=== PATIENT | female | born 1995 | race Caucasian/White ===

== ENCOUNTER 2017-08-11 16:54 | Inpatient (IN) | payer BC, OTHER ==
[~2017-08-11] VITALS: Ht 162.6 cm; Wt 66.4 kg
[2017-08-11] MEDS ORDERED: SODIUM CHLORIDE 0.9% 1000ML 1,000 ML IV STA (17:51)
[2017-08-11] MEDS ORDERED: ONDANSETRON INJ 2 MG/ML 2 ML VIAL IV STA (17:51)
[2017-08-11] MEDS ORDERED: FAMOTIDINE IV INJ 20 MG in DEXTROSE 5% 100ML 100 ML IV STA (17:51)
[2017-08-11] MEDS ORDERED: PANTOprazole INJ 40 MG in SYRINGE 0 ML IV ONE (18:00)
--- NOTE | 2017-08-11 18:00 | EMERGENCY ROOM VISIT NOTE ---
History Report prepared by Sean: Julian Massey Under the Supervision of: Dr. Robi Tyler D.O. First contact with patient: 17:49 Chief Complaint: VOMITING Stated Complaint: VOMITING BLOOD,ABD PAIN,HEADACHE,LIGHTHEADED,COUGH Nursing Triage Summary: pt had episode of n/v bright red blood today and has epigastric pain and [place] History of Present Illness The patient is a 22 year old female who presents to the Emergency Room with complaints of sudden vomiting occurring prior to arrival. The patient states that the patient was working, and she got the sudden urge to vomit, and she has vomited three times. She states that the first time she vomited she had 8-10oz of bright red blood in her vomit, and then afterwards she was having darker red vomit. The patient additionally notes that she has diffuse abdominal pain, and over the past two days she has intermittent sharp abdominal pain. She additionally states that she has been having chills, feels feverish, and she has a headache. She denies any hematochezia or melena, and she states that she has never had anything like this before. The patient states that she has chronic bronchitis, though she denies any stomach problems. She states that she drinks alcohol on the weekends, and her last period was three weeks ago. She denies nay chance of being . Source of History: patient Onset: prior to arrival Position: other (global) Quality: other (vomiting) Timing: other (sudden) Associated Symptoms: + fevers, + chills, + headache, + abdominal pain, No melena, No hematochezia Review of Systems See HPI for pertinent positives & negatives. A total of 10 systems reviewed and were otherwise negative. Past Medical & Surgical Medical Problems: (1) Hematemesis Social History Smoking Status: Never Smoker Alcohol Use: occasionally Occupation Status: [employer] student Current/Historical Medications Scheduled Control Pills ( Control Pills), 1 TAB PO DAILY Dextromethorphan-Guaifenesin (Delsym Cough + Chest Lazaro 5-100 mg/5Ml), 20 ML PO DAILY Escitalopram Oxalate (Lexapro), 20 MG PO DAILY Phenylephrine-Chlorpheniramine (Karla-[place] Plus Severe), 1 TAB PO BID Scheduled PRN Hydroxyzine Hcl (Atarax), 50 MG PO QID PRN for Anxiety Allergies Coded Allergies: No Known Allergies (Unverified , 08/11/17) Physical Exam Vital Signs Date Time Temp Pulse Resp B/P (MAP) Pulse Ox O2 Delivery O2 Flow Rate FiO2 08/11/17 18:35 79 17 127/76 96 Room Air 08/11/17 16:58 37.0 96 16 135/91 98 Physical Exam GENERAL: Patient is awake, alert, and in no acute distress. Patient is resting comfortably and showing no signs of anxiety EYES: The conjunctivae are clear. The pupils are round and reactive. EARS, NOSE, MOUTH AND THROAT: The nose is without any evidence of any deformity. Mucous membranes are moist tongue is midline NECK: The neck is nontender and supple. RESPIRATORY: Normal respiratory effort is noted there is no evidence of wheezing rhonchi or rales CARDIOVASCULAR: Regular rate and rhythm noted there no murmurs rubs or gallops normal S1 normal S2 GASTROINTESTINAL: The abdomen is soft. Bowel sounds are present in all quadrants. Abdomen is nontender MUSCULOSKELETAL/EXTREMITIES: There is no evidence of gross deformity full range of motion is noted in the hips and shoulders SKIN: There is no obvious evidence of any rash. There are no petechiae, pallor or cyanosis noted. NEUROLOGIC: Patient is awake alert and oriented x3 strength is symmetric patellar reflexes are 2+ bilaterally Medical Decision & Procedures ER Provider Diagnostic Interpretation: Radiology results as stated below per my review and radiologist interpretation: CHEST AND ABDOMEN 2 VIEWS HISTORY: Generalized abdominal pain. Vomiting. COMPARISON: FINDINGS: The lungs are clear. The cardiomediastinal silhouette is within normal limits. There is no pneumoperitoneum or pneumatosis. The bowel gas pattern is unremarkable. No evidence for bowel obstruction. No pathologic calcifications. IMPRESSION: No acute cardiopulmonary process. No evidence for bowel obstruction. Electronically signed by: Maurisio Calles M.D. 08/11/2017 7:52 PM Dictated Date/Time: 08/11/2017 7:49 PM Laboratory Results 08/11/17 18:00 Red Blood Count 4.56, Mean Corpuscular Volume 88.2, Mean Corpuscular Hemoglobin 29.4, Mean Corpuscular Hemoglobin Concent 33.3, Mean Platelet Volume 8.7, Neutrophils (%) (Auto) 85.7, Lymphocytes (%) (Auto) 10.8, Monocytes (%) (Auto) 3.0, Eosinophils (%) (Auto) 0.1, Basophils (%) (Auto) 0.1, Neutrophils # (Auto) 9.22, Lymphocytes # (Auto) 1.16, Monocytes # (Auto) 0.32, Eosinophils # (Auto) 0.01, Basophils # (Auto) 0.01 Test 08/11/17 18:00 White Blood Count 10.75 K/uL (4.8-10.8) Red Blood Count 4.56 M/uL (4.2-5.4) Hemoglobin 13.4 g/dL (12.0-16.0) Hematocrit 40.2 % (37-47) Mean Corpuscular Volume 88.2 fL (80-100) Mean Corpuscular Hemoglobin 29.4 pg (25-34) Mean Corpuscular Hemoglobin Concent 33.3 g/dl (32-36) Platelet Count 279 K/uL (130-400) Mean Platelet Volume 8.7 fL (7.4-10.4) Neutrophils (%) (Auto) 85.7 % Lymphocytes (%) (Auto) 10.8 % Monocytes (%) (Auto) 3.0 % Eosinophils (%) (Auto) 0.1 % Basophils (%) (Auto) 0.1 % Neutrophils # (Auto) 9.22 K/uL (1.4-6.5) Lymphocytes # (Auto) 1.16 K/uL (1.2-3.4) Monocytes # (Auto) 0.32 K/uL (0.11-0.59) Eosinophils # (Auto) 0.01 K/uL (0-0.5) Basophils # (Auto) 0.01 K/uL (0-0.2) RDW Standard Deviation 42.8 fL (36.4-46.3) RDW Coefficient of Variation 13.3 % (11.5-14.5) Immature Granulocyte % (Auto) 0.3 % Immature Granulocyte # (Auto) 0.03 K/uL (0.00-0.02) Prothrombin Time 10.1 SECONDS (9.0-12.0) Prothromb Time International Ratio 0.9 (0.9-1.1) Activated Partial Thromboplast Time 30.1 SECONDS (21.0-31.0) Partial Thromboplastin Ratio 1.2 Urine Color YELLOW Urine Appearance CLEAR (CLEAR) Urine pH >= 9.0 (4.5-7.5) Urine Specific [place] 1.027 (1.000-1.030) Urine Protein 1+ (NEG) Urine Glucose (UA) NEG (NEG) Urine Ketones 1+ (NEG) Urine Occult Blood NEG (NEG) Urine Nitrite NEG (NEG) Urine Bilirubin NEG (NEG) Urine Urobilinogen NEG (NEG) Urine Leukocyte Esterase SMALL (NEG) Urine WBC (Auto) 10-30 /hpf (0-5) Urine RBC (Auto) 10-30 /hpf (0-4) Urine Hyaline Casts (Auto) 5-10 /lpf (0-5) Urine Epithelial Cells (Auto) >30 /lpf (0-5) Urine Bacteria (Auto) 1+ (NEG) Gastric Fluid pH 2 Gastric Fluid Occult Blood POS (NEG) Total Bilirubin 0.3 mg/dl (0.2-1) Direct Bilirubin < 0.1 mg/dl (0-0.2) Aspartate Amino Transf (AST/SGOT) 17 U/L (15-37) Alanine Aminotransferase (ALT/SGPT) 23 U/L (12-78) Alkaline Phosphatase 78 U/L (45-117) Total Protein 8.4 gm/dl (6.4-8.2) Albumin 4.4 gm/dl (3.4-5.0) Lipase 98 U/L (73-393) Human Chorionic Gonadotropin, Qual NEG (NEG) Laboratory results per my review. Medications Administered Medications (Trade) Dose Ordered Sig/Eda Route Start Time Stop Time Status Last Admin Dose Admin Sodium Chloride 1,000 ml @ 999 mls/hr Q1H1M STAT IV 08/11/17 17:51 08/11/17 18:51 DC 08/11/17 18:10 999 MLS/HR Ondansetron HCl (Zofran Inj) 4 mg NOW STAT IV 08/11/17 17:51 08/11/17 17:54 DC 08/11/17 18:37 4 MG Famotidine 20 mg/ Dextrose 102 ml @ 200 mls/hr ONE STAT IV 08/11/17 17:51 08/11/17 18:21 DC 08/11/17 18:37 200 MLS/HR Pantoprazole Sodium 40 mg/ Syringe 10 ml @ 5 mls/min NOW ONCE IV 08/11/17 18:00 08/11/17 18:01 DC 08/11/17 18:38 5 MLS/MIN Ondansetron HCl (Zofran Inj) 4 mg Q6H PRN IV 08/11/17 19:30 08/12/17 15:22 DC 08/12/17 05:39 4 MG ED Course 1749: The patient was evaluated in room B10. A complete history and physical examination were performed. 1751: Famotidine 20mg. Dextrose 102ml @ 200mls.hr IV, Zofran Inj 4mg IV, NSS 1, 000 ml @ 999 mls/hr IV 1800: Pantoprazole Sodium 40mg/ Syringe 10ml @ 5 mls/min IV 1919: I discussed the patient's case with Dr. Davis. The patient will be evaluated for further management. 1922: I reevaluated the patient, and I discussed the treatment plan with her and she was agreeable. 1943: I discussed the patient's case with GLYNN Wilcox, and he recommends that the patient that the patient be NPO after midnight, and he will scope the patient tomorrow. Medical Decision Differential diagnosis: Etiologies such as diverticulosis, AVM, coagulopathy, colitis, inflammatory bowel disease, malignancy, Lacy-Gómez tear, esophagitis, peptic ulcer disease , variceal bleed, gastritis, epistaxis, fissure, hemorrhoids, as well as others were entertained. Nursing notes reviewed. The patient is a 22-year-old female who presented to emergency department for evaluation of upper GI bleeding. The patient had multiple episodes of hematemesis. She was treated with IV fluids as well as proton pump inhibitors and H2 blockers. She was reevaluated multiple times. I discussed the patient's laboratory radiographic studies with her. I discussed her case with the on-call assembler [employer] as well as the on-call [facility] hospitalist. They've agreed to evaluate the patient in the emergency department for further management and disposition. Consults Time Called: 1917 Consulting Physician: Dr. Davis Returned Call: 1919 I discussed the patient's case with Dr. Davis. The patient will be evaluated for further management. Additional Consults: Time Called: 1929 Consulted Physician: GLYNN Wilcox Returned Call: 1945 Additional Comments: I discussed the patient's case with Dr. Sundar, GI, and he recommends that the patient that the patient be NPO after midnight, and he will scope the patient tomorrow. Impression Primary Impression: GI bleed Additional Impression: Hematemesis Scribe Attestation The scribe's documentation has been prepared under my direction and personally reviewed by me in its entirety. I confirm that the note above accurately reflects all work, treatment, procedures, and medical decision making performed by me. Departure Information Dispostion Being Evaluated By Hospitalist Referrals No Doctor, Assigned (PCP) Patient Instructions My [facility] Problem Qualifiers
[2017-08-11] MEDS ORDERED: ESCI1TAB10 PO (18:09)
[2017-08-11] MEDS ORDERED: HYDR-3126 PO (18:09)
[2017-08-11] MEDS ORDERED: DEXT-163 PO (18:09)
[2017-08-11] MEDS ORDERED: BCPILLS PO (18:09)
[2017-08-11] MEDS ORDERED: [UNRECOGNIZED DRUG - CODE] PO (18:09)
[2017-08-11 18:42] LABS: BASO % 0.1 %; BASO ABS # 0.01 K/uL (0-0.2); COMPLETE YES; EOS % 0.1 %; HEMATOCRIT 40.2 % (37-47); IG% 0.3 %; LYMPH % 10.8 %; LYMPH ABS # 1.16 K/uL (1.2-3.4); MEAN CELL VOLUME 88.2 fL (80-100); MEAN CORPUSCULAR HEMOGLOBIN 29.4 pg (25-34); MEAN CORPUSCULAR HGB CONC 33.3 g/dl (32-36); MEAN PLATELET VOLUME 8.7 fL (7.4-10.4); NEUT % 85.7 %; PLATELET COUNT 279 K/uL (130-400); RED BLOOD COUNT 4.56 M/uL (4.2-5.4); WHITE BLOOD COUNT 10.75 K/uL (4.8-10.8)
[2017-08-11 18:52] LABS: URINE APPEARANCE CLEAR (CLEAR); URINE BILIRUBIN NEG (NEG); URINE COLOR YELLOW; URINE EPITHELIAL CELL AUTO >30 /lpf (0-5); URINE NITRITE NEG (NEG); URINE PH >= 9.0 (4.5-7.5); URINE SPECIFIC GRAVITY 1.027 (1.000-1.030); UROBILINOGEN NEG (NEG)
[2017-08-11 18:55] LABS: GASTRIC OCCULT BLOOD POS (NEG); GASTRIC OCCULT BLOOD PH 2
[2017-08-11 18:56] LABS: INR 0.9 (0.9-1.1); MANUAL MICROSCOPIC REQUIRED? NO; PARTIAL THROMBOPLASTIN RATIO 1.2; PROTHROMBIN TIME (PATIENT) 10.1 SECONDS (9.0-12.0); REVIEW REQ? NO
[2017-08-11 18:58] LABS: SULFASALICYLIC ACID POS (NEG)
[2017-08-11 19:11] LABS: ALKALINE PHOSPHATASE 78 U/L (45-117); ALT/SGPT 23 U/L (12-78); AST/SGOT 17 U/L (15-37); BLOOD UREA NITROGEN 10 mg/dl (7-18); BUN/CREATININE RATIO 16.7 (10-20); CALCIUM 9.3 mg/dl (8.5-10.1); CARBON DIOXIDE 27 mmol/L (21-32); CHLORIDE 105 mmol/L (98-107); CREATININE 0.61 mg/dl (0.60-1.20); GLUCOSE 78 mg/dl (70-99); POTASSIUM 3.3 mmol/L (3.5-5.1); PREG INTERNAL NEGATIVE QC NEG CLEAR BACKGROUND; PREG INTERNAL POSITIVE QC POS CONTROL LINE; SODIUM 140 mmol/L (136-145)
[2017-08-11] MEDS ORDERED: PANTOprazole INJ 40 MG in SYRINGE 0 ML IV STA (19:36)
--- NOTE | 2017-08-11 19:53 | DIAGNOSTIC IMAGING REPORT ---
CHEST AND ABDOMEN 2 VIEWS HISTORY: Generalized abdominal pain. Vomiting. COMPARISON: FINDINGS: The lungs are clear. The cardiomediastinal silhouette is within normal limits. There is no pneumoperitoneum or pneumatosis. The bowel gas pattern is unremarkable. No evidence for bowel obstruction. No pathologic calcifications. IMPRESSION: No acute cardiopulmonary process. No evidence for bowel obstruction. Electronically signed by: Maurisio Calles M.D. 08/11/2017 7:52 PM Dictated Date/Time: 08/11/2017 7:49 PM
[2017-08-11] MEDS: MoRPHine SULFATE 2 MG/ML CARP IV PRN ×2 (20:16→22:18)
--- NOTE | 2017-08-11 20:22 | History and Physical ---
History & Physical Date & Time of Service: Aug 11, 2017 at 20:02 Chief Complaint: Vomiting Blood,Abd Pain,Headache,Lightheaded,Cough Primary Care Physician: [facility] History of Present Illness Source: patient 22 y/o F - denies active medical issues. Pt has had mild diffuse abdominal pain for 2 days although she has been eating normally. The pt developed acute nausea and vomiting. She had 2 episodes of clear emesis followed by 2 episodes of vomiting bright red blood. She denies SOB, CP, fevers or worsening pain. The pt's vital signs are stable at the time of admission. An initial hemoglobin is WNL. 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 She does not smoke. She has 3-4 drinks when she goes out, which happens 2-3 times/wk. Smoking Status: Never Smoker Occupational Status: [employer] student Allergies Coded Allergies: No Known Allergies (Unverified , 08/11/17) Home Medications Scheduled Control Pills ( Control Pills), 1 TAB PO DAILY Dextromethorphan-Guaifenesin (Delsym Cough + Chest Lazaro 5-100 mg/5Ml), 20 ML PO DAILY Escitalopram Oxalate (Lexapro), 20 MG PO DAILY Phenylephrine-Chlorpheniramine (Karla-[place] Plus Severe), 1 TAB PO BID Scheduled PRN Hydroxyzine Hcl (Atarax), 50 MG PO QID PRN for Anxiety Review of Systems Constitutional: No fever, No chills, No sweats Eyes: No worsening of vision ENT: No hearing loss, No unusual epistaxis, No nasal symptoms Respiratory: No cough, No sputum, No wheezing Cardiovascular: No chest pain, No orthopnea, No PND Abdomen: + pain, + nausea, + vomiting, + problem reported (hematemesis) Musculoskeletal: No joint pain Genitourinary - Female: No dysuria, No urinary frequency, No urinary urgency Neurologic: No memory loss, No paralysis, No weakness Psychiatric: No depression symptoms Endocrine: No fatigue Hematologic / Lymphatic: + abnormal bleeding/bruising Integumentary: No rash Allergic / Immunologic: No environmental allergies Physical Exam Vital Signs Date Time Temp Pulse Resp B/P (MAP) Pulse Ox O2 Delivery O2 Flow Rate FiO2 08/11/17 18:35 79 17 127/76 96 Room Air 08/11/17 16:58 37.0 96 16 135/91 98 General Appearance: WD/WN, no apparent distress Head: normocephalic Eyes: normal inspection, PERRL, EOMI ENT: normal ENT inspection, pharynx normal Neck: supple, no JVD Respiratory/Chest: chest non-tender, lungs clear, normal breath sounds Cardiovascular: regular rate, rhythm, no edema, no gallop, no JVD, no murmur, normal peripheral pulses Abdomen/GI: normal bowel sounds, non tender, soft Back: normal inspection, no CVA tenderness Extremities/Musculoskelatal: normal inspection, no calf tenderness, normal capillary refill Neurologic/Psych: traffic observer II-XII nml as tested, no motor/sensory deficits, alert Skin: normal color, warm/dry, no rash Diagnostics Laboratory Results Results Past 24 Hours Test 08/11/17 18:00 Range/Units White Blood Count 10.75 4.8-10.8 K/uL Red Blood Count 4.56 4.2-5.4 M/uL Hemoglobin 13.4 12.0-16.0 g/dL Hematocrit 40.2 37-47 % Mean Corpuscular Volume 88.2 80-100 fL Mean Corpuscular Hemoglobin 29.4 25-34 pg Mean Corpuscular Hemoglobin Concent 33.3 32-36 g/dl Platelet Count 279 130-400 K/uL Mean Platelet Volume 8.7 7.4-10.4 fL Neutrophils (%) (Auto) 85.7 % Lymphocytes (%) (Auto) 10.8 % Monocytes (%) (Auto) 3.0 % Eosinophils (%) (Auto) 0.1 % Basophils (%) (Auto) 0.1 % Neutrophils # (Auto) 9.22 1.4-6.5 K/uL Lymphocytes # (Auto) 1.16 1.2-3.4 K/uL Monocytes # (Auto) 0.32 0.11-0.59 K/uL Eosinophils # (Auto) 0.01 0-0.5 K/uL Basophils # (Auto) 0.01 0-0.2 K/uL RDW Standard Deviation 42.8 36.4-46.3 fL RDW Coefficient of Variation 13.3 11.5-14.5 % Immature Granulocyte % (Auto) 0.3 % Immature Granulocyte # (Auto) 0.03 0.00-0.02 K/uL Prothrombin Time 10.1 9.0-12.0 SECONDS Prothromb Time International Ratio 0.9 0.9-1.1 Activated Partial Thromboplast Time 30.1 21.0-31.0 SECONDS Partial Thromboplastin Ratio 1.2 Urine Color YELLOW Urine Appearance CLEAR CLEAR Urine pH >= 9.0 4.5-7.5 Urine Specific [place] 1.027 1.000-1.030 Urine Protein 1+ NEG Urine Glucose (UA) NEG NEG Urine Ketones 1+ NEG Urine Occult Blood NEG NEG Urine Nitrite NEG NEG Urine Bilirubin NEG NEG Urine Urobilinogen NEG NEG Urine Leukocyte Esterase SMALL NEG Urine WBC (Auto) 10-30 0-5 /hpf Urine RBC (Auto) 10-30 0-4 /hpf Urine Hyaline Casts (Auto) 5-10 0-5 /lpf Urine Epithelial Cells (Auto) >30 0-5 /lpf Urine Bacteria (Auto) 1+ NEG Gastric Fluid pH 2 Gastric Fluid Occult Blood POS NEG Sodium Level 140 136-145 mmol/L Potassium Level 3.3 3.5-5.1 mmol/L Chloride Level 105 98-107 mmol/L Carbon Dioxide Level 27 21-32 mmol/L Anion Gap 8.0 3-11 mmol/L Blood Urea Nitrogen 10 7-18 mg/dl Creatinine 0.61 0.60-1.20 mg/dl Est Creatinine Clear Calc Drug Dose 137.1 ml/min Estimated GFR () 149.1 Estimated GFR (Non- 128.7 BUN/Creatinine Ratio 16.7 10-20 Random Glucose 78 70-99 mg/dl Calcium Level 9.3 8.5-10.1 mg/dl Total Bilirubin 0.3 0.2-1 mg/dl Direct Bilirubin < 0.1 0-0.2 mg/dl Aspartate Amino Transf (AST/SGOT) 17 15-37 U/L Alanine Aminotransferase (ALT/SGPT) 23 12-78 U/L Alkaline Phosphatase 78 45-117 U/L Total Protein 8.4 6.4-8.2 gm/dl Albumin 4.4 3.4-5.0 gm/dl Lipase 98 73-393 U/L Human Chorionic Gonadotropin, Qual NEG NEG Impression Assessment and Plan 22 y/o F - denies active medical issues. Pt has had mild diffuse abdominal pain for 2 days although she has been eating normally. The pt developed acute nausea and vomiting. She had 2 episodes of clear emesis followed by 2 episodes of vomiting bright red blood. She denies SOB, CP, fevers or worsening pain. The pt's vital signs are stable at the time of admission. An initial hemoglobin is WNL. 1) Hematemesis - no clear etiology - she denies retching for an extended period so a Lacy-Gómez tear is less likely. She does take oral contraceptives so that we will obtain a hepatic vein US to r/o thrombosis and the likelihood of varices. The pt will be placed on a PPi, kept NPO and we will type and cross PRBCs. Serial Hb ordered - GI informed by ER attending and have advised that the pt will require endoscopy. 2) Depression - can resume Lexapro on DC Full code - SCDs Total time for this admit including review of labs, meds, records - discussion with pt's and ER attending - 37 min Level of Care Telemetry Resuscitation Status FULL RESUSCITATION VTE Prophylaxis VTE Risk Assessment Done? Y/N: Yes Risk Level: Very Low Given or contraindicated: SCD's
--- NOTE | 2017-08-11 21:04 | DIAGNOSTIC IMAGING REPORT ---
DUPLEX PORTAL HEPATIC VEINS ULTRASOUND HISTORY: Vomiting blood. Assess for portal thrombosis COMPARISON STUDY: None. FINDINGS: The portal and hepatic veins appear patent and demonstrate a normal direction of flow. The IVC is also patent. There is a 1.3 cm hyperechoic lesion within the liver. The splenic vein also appears patent. IMPRESSION: 1. No evidence for portal or hepatic vein thrombosis. 2. A 1.3 cm hyperechoic lesion within the liver. This is technically indeterminate by ultrasound but has the typical appearance for a hemangioma. Electronically signed by: Maurisio Calles M.D. 08/11/2017 9:03 PM Dictated Date/Time: 08/11/2017 9:02 PM
[2017-08-11] MEDS: PANTOprazole INJ 40 MG in DEXTROSE 5% 100ML IV SCH (21:36)
[2017-08-11] MEDS: D5NSS + 20MEQ KCL 1,000 ML IV SCH (21:36)
[2017-08-11 21:59] VITALS: BP 132/85; PULSE 73; TEMP 36.7; Ht 162.6 cm; Wt 66.4 kg
[2017-08-11 23:42] VITALS: BP 113/74; PULSE 72; TEMP 36.8; O2SAT 97
[2017-08-12] VITALS (8 sets, daily range): BP systolic 108–125; BP diastolic 72–80; PULSE 71–119; TEMP 36.6–36.8; O2SAT 96–98
[2017-08-12] MEDS: ONDANSETRON INJ 2 MG/ML 2 ML VIAL IV PRN ×2 (00:36→05:39)
[2017-08-12] MEDS: MoRPHine SULFATE 2 MG/ML CARP IV PRN ×6 (00:36→16:14)
[2017-08-12] MEDS: PANTOprazole INJ 40 MG in DEXTROSE 5% 100ML IV SCH ×3 (00:37→10:28)
[2017-08-12] MEDS: D5NSS + 20MEQ KCL 1,000 ML IV SCH (03:44)
[2017-08-12 04:44] LABS: BLOOD UREA NITROGEN 8 mg/dl (7-18); BUN/CREATININE RATIO 15.3 (10-20); CARBON DIOXIDE 25 mmol/L (21-32); CHLORIDE 112 mmol/L (98-107); CREATININE 0.51 mg/dl (0.60-1.20); GLUCOSE 105 mg/dl (70-99); POTASSIUM 3.6 mmol/L (3.5-5.1); SODIUM 142 mmol/L (136-145)
[2017-08-12 04:52] LABS: CALCIUM 7.8 mg/dl (8.5-10.1)
--- NOTE | 2017-08-12 09:31 | Gastrointestinal Consultation ---
Gastrointestinal Consultation Date of Consultation: Aug 12, 2017 Attending Physician: Marlon Patterson Consulting Physician: Delbert Tucker Reason for Consultation: Hematemesis History of Present Illness Patient is a 22 year old female w PMHx of depression who presented to ED yesterday w c/o blood in emesis. She had been having productive cough, nasal congestion x 2 weeks. Didn't see physician, just been using OTC antitussive, and Ibuprofen on PRN basis for her symptoms. 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 While seeing patients, she started having nausea , vomiting. Initially clear emesis clear in color, by third episode she noted bright red blood mixed in with emesis. flying i instructor sent her to ED. At ED around 5PM she had another emesis w coffee ground looking materials. She had nausea but no vomiting since then. She did have some loose stools a few days ago which is subsiding. Denies any dark or tarry appearing stools though admit most times don't look at stool. Roomate is starting to get cough. She has been afebrile overnight, VS stable. Hgb on admission 13, dropped to 11 but remained stable overnight. No coagulopathy. CMP also unremarkable, specifically no BUN elevation. Chest/abd xray unremarkable. Liver u/s w hemangioma finding. She denies any tobacco or illicit drugs. Utox, urine test negative. She drinks ETOH on weekends. Last intak 2 days ago 2 vodka mixed drinks. Past Medical/Surgical History Medical Problems: (1) GI bleed Status: Acute Past Medical History: See above Past Surgical History: [place] teeth removal Family History Denies hx of IBD, GI malignancy Social History Smoking Status: Never Smoker Alcohol Use: occasionally Drug Use: none Housing Status: lives with roommate Occupation Status: [employer] student Allergies Coded Allergies: No Known Allergies (Unverified , 08/11/17) Current Medications Home Meds and Scripts Medications Dose Route/Sig Max Daily Dose Days Date Category Karla[place] Plus Severe (Phenylephrine-Chlorpheniramine) 1 Tab Tab 1 Tab PO BID 08/11/17 Reported Delsym Cough + Chest Lazaro 5-100 mg/5Ml (Dextromethorphan-Guaifenesin) 1 Liq Liq 20 Ml PO DAILY 08/11/17 Reported Atarax (Hydroxyzine Hcl) 50 Mg Tab 50 Mg PO QID PRN 08/11/17 Reported Control Pills (Miscellaneous) Tab 1 Tab PO DAILY 08/11/17 Reported Lexapro (Escitalopram Oxalate) 20 Mg Tab 20 Mg PO DAILY 08/11/17 Reported Review of Systems Constitutional: + weakness, No fever Respiratory: + cough, + sputum, No shortness of breath Cardiac: No chest pain Abdomen: + see HPI, + pain (mild on RLQ, LUQ ), + nausea, + vomiting, + diarrhea, + GI bleeding Endo: + fatigue Skin: No rash, No itch Physical Exam Date Time Temp Pulse Resp B/P (MAP) Pulse Ox O2 Delivery O2 Flow Rate FiO2 08/12/17 07:24 36.7 71 16 111/76 (88) 97 08/12/17 06:04 36.7 74 18 108/72 96 Room Air 08/12/17 04:01 36.7 74 18 108/72 (84) 96 Room Air 08/12/17 04:00 Room Air 08/12/17 00:00 Room Air 08/11/17 23:42 36.8 72 20 113/74 (87) 97 Room Air 08/11/17 21:59 36.7 73 18 132/85 Room Air 08/11/17 18:35 79 17 127/76 96 Room Air 08/11/17 16:58 37.0 96 16 135/91 98 General Appearance: WD/WN, no apparent distress Eyes: normal inspection, PERRL, EOMI Neck: trachea midline Respiratory/Chest: normal breath sounds, no respiratory distress, no accessory muscle use, + pertinent finding (coughing ) Cardiovascular: regular rate, rhythm, no gallop, no murmur Abdomen: normal bowel sounds, soft, + tenderness (mild LUQ ) Extremities: normal inspection, no pedal edema, no calf tenderness Neurologic/Psych: alert, normal mood/affect, oriented x 3 Skin: normal color, no jaundice, no rash Laboratory Results Last 24 Hours Test 08/11/17 18:00 08/11/17 23:29 08/12/17 04:02 08/12/17 08:13 White Blood Count 10.75 K/uL Red Blood Count 4.56 M/uL Hemoglobin 13.4 g/dL 11.1 g/dL 10.4 g/dL 11.2 g/dL Hematocrit 40.2 % Mean Corpuscular Volume 88.2 fL Mean Corpuscular Hemoglobin 29.4 pg Mean Corpuscular Hemoglobin Concent 33.3 g/dl Platelet Count 279 K/uL Mean Platelet Volume 8.7 fL Neutrophils (%) (Auto) 85.7 % Lymphocytes (%) (Auto) 10.8 % Monocytes (%) (Auto) 3.0 % Eosinophils (%) (Auto) 0.1 % Basophils (%) (Auto) 0.1 % Neutrophils # (Auto) 9.22 K/uL Lymphocytes # (Auto) 1.16 K/uL Monocytes # (Auto) 0.32 K/uL Eosinophils # (Auto) 0.01 K/uL Basophils # (Auto) 0.01 K/uL RDW Standard Deviation 42.8 fL RDW Coefficient of Variation 13.3 % Immature Granulocyte % (Auto) 0.3 % Immature Granulocyte # (Auto) 0.03 K/uL Prothrombin Time 10.1 SECONDS Prothromb Time International Ratio 0.9 Activated Partial Thromboplast Time 30.1 SECONDS Partial Thromboplastin Ratio 1.2 Urine Color YELLOW Urine Appearance CLEAR Urine pH >= 9.0 Urine Specific [place] 1.027 Urine Protein 1+ Urine Glucose (UA) NEG Urine Ketones 1+ Urine Occult Blood NEG Urine Nitrite NEG Urine Bilirubin NEG Urine Urobilinogen NEG Urine Leukocyte Esterase SMALL Urine WBC (Auto) 10-30 /hpf Urine RBC (Auto) 10-30 /hpf Urine Hyaline Casts (Auto) 5-10 /lpf Urine Epithelial Cells (Auto) >30 /lpf Urine Bacteria (Auto) 1+ Gastric Fluid pH 2 Gastric Fluid Occult Blood POS Sodium Level 140 mmol/L 142 mmol/L Potassium Level 3.3 mmol/L 3.6 mmol/L Chloride Level 105 mmol/L 112 mmol/L Carbon Dioxide Level 27 mmol/L 25 mmol/L Anion Gap 8.0 mmol/L 5.0 mmol/L Blood Urea Nitrogen 10 mg/dl 8 mg/dl Creatinine 0.61 mg/dl 0.51 mg/dl Est Creatinine Clear Calc Drug Dose 137.1 ml/min 164.0 ml/min Estimated GFR () 149.1 > 150.0 Estimated GFR (Non- 128.7 136.5 BUN/Creatinine Ratio 16.7 15.3 Random Glucose 78 mg/dl 105 mg/dl Calcium Level 9.3 mg/dl 7.8 mg/dl Total Bilirubin 0.3 mg/dl Direct Bilirubin < 0.1 mg/dl Aspartate Amino Transf (AST/SGOT) 17 U/L Alanine Aminotransferase (ALT/SGPT) 23 U/L Alkaline Phosphatase 78 U/L Total Protein 8.4 gm/dl Albumin 4.4 gm/dl Lipase 98 U/L Human Chorionic Gonadotropin, Qual NEG Impression Patient is a 22 year old female initially w productive cough, nasal congestion symptoms x 2 weeks, mild diarrhea; then yesterday developed nausea, vomiting. Initially emesis clear then turned blood tinged w some coffee grounds appearing materials as well. She denies dark tarry stools, though admits doesn't really look at stools. Hgb dropped from 13 to 11 but stable overnight ? hemodilutional due to IV fluids. No BUN elevation. DDx: Lacy Gómez tear vs bleeding ulcer (was taking OTC meds for cough, some Ibuprofen but said not on daily basis), gastritis, esophagitis. Plan - Continue PPI gtt (had bolus yesterday) - Keep NPO for EGD evaluation today. - Robitussin AC 10ml q6hr prn cough; may consider antibiotics for possible bronchitis but defer to primary team. Attg addendum: I interviewed and examined pt, reviewed chart and labs. Pt with chronic NSAID use, with n/v yesterday. First episode of vomiting non bloody, later episodes with BRB and coffee grounds. Admission VS and hgb unremarkable, BUN on admission unremarkable. Hgb fell overnight with hydration. Pt with continued retching and abd pain. Suspect PUD or MW tear/esophagitis. EGD today. D/w anesthesia staff.
[2017-08-12] MEDS: GUAIFENESIN/CODEINE 200MG/20MG 10ML UDC PO PRN ×2 (09:51→13:01)
[2017-08-12] MEDS ORDERED: ALBUTEROL 0.083% NEBU SOLN 3 ML VIAL INH ONE (11:01)
[2017-08-12] MEDS ORDERED: FENTANYL CITRATE INJ 50 MCG/1 ML 2 ML VIAL ONE (11:48)
[2017-08-12] MEDS ORDERED: KETAMINE HCL INJ 50 MG/ML 10 ML VIAL ONE (11:48)
[2017-08-12] MEDS ORDERED: PROPOFOL IV EMULSION 10 MG/ML 20 ML VIAL IV ONE (12:11)
[2017-08-12] MEDS ORDERED: LIDOCAINE HCL 2% 2 ML VIAL (20MG/ML) ONE (12:11)
--- NOTE | 2017-08-12 12:15 | GI REPORT ---
Procedure Date: 08/12/2017 11:44 AM Procedure: Upper GI endoscopy Indications: Hematemesis Medicines: See the Anesthesia note for documentation of the administered medications Complications: No immediate complications. Estimated Blood Loss: Estimated blood loss: none. Procedure: Pre-Anesthesia Assessment: - ASA Grade Assessment: III - A patient with severe systemic disease. After obtaining informed consent, the endoscope was passed under direct vision. Throughout the procedure, the patient's blood pressure, pulse, and oxygen saturations were monitored continuously. The scope was introduced through the mouth, and advanced to the second part of duodenum. The upper GI endoscopy was accomplished without difficulty. The patient tolerated the procedure well. Findings: The GE junction was at 40 cm. There was a MW tear at the GE junction with a flat pigmented spot. The tear appeared to be shallow and healing. There was erythema in the fundus and cardia, likely related to retching. The remainder of the stomach was normal. There was mild patchy erythema in the bulb; the duodenum was otherwise normal. Impression: MW tear. Recommendation: - Discharge patient to floor. She is at low risk for recurrent GIB. Cont IV bolus PPI BID, and switch to PO once her vomiting subsides. Would complete 14 day course of BID PPI, and then d/c. I would assume her peristent nausea and vomiting are related to gastroenteritis - would use scheduled Reglan 5 IV TID and Zofran 4 TID, and try to avoid narcotics. Delbert Parra M.D. Delbert Parra MD 08/12/2017 12:14:59 PM This report has been signed electronically. Note Initiated On: 08/12/2017 11:44 AM I attest to the content of the Intraoperative Record and orders documented therein, exceptions below
--- NOTE | 2017-08-12 12:38 | Anesthesiology Progress Note ---
Anesthesia Post Op Note Date & Time Aug 12, 2017 at 12:38 Vital Signs Pain Intensity: 8.0 Vital Signs Past 12 Hours Date Time Temp Pulse Resp B/P (MAP) Pulse Ox O2 Delivery O2 Flow Rate FiO2 08/12/17 11:46 124 20 127/75 (92) 97 Room Air 08/12/17 11:15 84 12 98 Room Air 08/12/17 11:10 37.2 79 20 125/80 (95) 98 Room Air 08/12/17 08:00 Room Air 08/12/17 08:00 Room Air 08/12/17 07:24 36.7 71 16 111/76 (88) 97 08/12/17 06:04 36.7 74 18 108/72 96 Room Air 08/12/17 04:01 36.7 74 18 108/72 (84) 96 Room Air 08/12/17 04:00 Room Air Notes Mental Status: alert / awake / arousable, participated in evaluation Pt Amnestic to Procedure: Yes Nausea / Vomiting: adequately controlled Pain: adequately controlled Airway Patency, RR, SpO2: stable & adequate BP & HR: stable & adequate Hydration State: stable & adequate Anesthetic Complications: no major complications apparent Patient nauseated, but not vomiting and this is unchanged since her preoperative status.
[2017-08-12] MEDS ORDERED: CHLORPH/HYDROCOD EXT REL LIQ 5ML UDP PO PRN (12:45)
[2017-08-12] MEDS ORDERED: AZITHROMYCIN IV 500 MG in DEXTROSE 5% 250ML 250 ML IV ONE (13:00)
--- NOTE | 2017-08-12 14:59 | Medical Student: [facility] ---
Med Student Progress Note Date of Service Aug 12, 2017. 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 She noted feeling ill suddenly and vomitting. She has also had a cough for the last 2 weeks. Overnight she has felt very nauseated despite being NPO. She was also placed on pantoprazole 40 mg q 5 hrs. She also notes diffuse abdominal pain at 7/10 with more acute episodes of pain in the RLQ that are sharp, and a pain that feels "twisting" in nature in her LUQ. She notes an unrelenting cough that worsens her abdominal pain. Despite being on 2 mg of Morphine, her abdominal pain is not controlled. Review of Systems Constitutional: No fever, No chills, No sweats, No weight loss Respiratory: + cough, + sputum, No wheezing, No shortness of breath Cardiac: No palpitations Abdomen: + pain, + nausea, + vomiting (wretching), No diarrhea, No constipation Musculoskeletal: No joint pain, No muscle pain Female : No dysuria, No urinary frequency Skin: No rash, No itch Objective Vital Signs Date Time Temp Pulse Resp B/P (MAP) Pulse Ox O2 Delivery O2 Flow Rate FiO2 08/12/17 14:00 36.8 92 16 113/75 (88) 98 2.0 08/12/17 13:00 36.6 119 18 124/77 (93) 96 Nasal Cannula 2.0 08/12/17 12:34 112 22 118/90 (99) 98 Room Air 08/12/17 12:19 155 22 134/75 (94) 97 Room Air 08/12/17 12:04 125 18 117/89 (98) 97 Room Air 08/12/17 12:00 Room Air 08/12/17 11:46 124 20 127/75 (92) 97 Room Air 08/12/17 11:15 84 12 98 Room Air 08/12/17 11:10 37.2 79 20 125/80 (95) 98 Room Air 08/12/17 08:00 Room Air 08/12/17 08:00 Room Air 08/12/17 07:24 36.7 71 16 111/76 (88) 97 08/12/17 06:04 36.7 74 18 108/72 96 Room Air 08/12/17 04:01 36.7 74 18 108/72 (84) 96 Room Air 08/12/17 04:00 Room Air 08/12/17 00:00 Room Air 08/11/17 23:42 36.8 72 20 113/74 (87) 97 Room Air 08/11/17 21:59 36.7 73 18 132/85 Room Air 08/11/17 18:35 79 17 127/76 96 Room Air 08/11/17 16:58 37.0 96 16 135/91 98 Physical Exam General Appearance: WD/WN, + mild distress (upset, crying. Uncomfortable appearing. ) ENT: hearing grossly normal, pharynx normal Neck: supple, no adenopathy, thyroid normal Respiratory/Chest: lungs clear, no respiratory distress, no accessory muscle use, + stridor Cardiovascular: regular rate, rhythm, no murmur Abdomen: normal bowel sounds, no organomegaly, + tenderness (RLQ) Extremities: normal inspection, no pedal edema, no calf tenderness Neurologic/Psychiatric: alert, normal mood/affect, oriented x 3 Skin: normal color, warm/dry, no rash Laboratory Results Last 24 Hours Test 08/11/17 18:00 08/11/17 23:29 08/12/17 04:02 08/12/17 08:13 White Blood Count 10.75 K/uL Red Blood Count 4.56 M/uL Hemoglobin 13.4 g/dL 11.1 g/dL 10.4 g/dL 11.2 g/dL Hematocrit 40.2 % Mean Corpuscular Volume 88.2 fL Mean Corpuscular Hemoglobin 29.4 pg Mean Corpuscular Hemoglobin Concent 33.3 g/dl Platelet Count 279 K/uL Mean Platelet Volume 8.7 fL Neutrophils (%) (Auto) 85.7 % Lymphocytes (%) (Auto) 10.8 % Monocytes (%) (Auto) 3.0 % Eosinophils (%) (Auto) 0.1 % Basophils (%) (Auto) 0.1 % Neutrophils # (Auto) 9.22 K/uL Lymphocytes # (Auto) 1.16 K/uL Monocytes # (Auto) 0.32 K/uL Eosinophils # (Auto) 0.01 K/uL Basophils # (Auto) 0.01 K/uL RDW Standard Deviation 42.8 fL RDW Coefficient of Variation 13.3 % Immature Granulocyte % (Auto) 0.3 % Immature Granulocyte # (Auto) 0.03 K/uL Prothrombin Time 10.1 SECONDS Prothromb Time International Ratio 0.9 Activated Partial Thromboplast Time 30.1 SECONDS Partial Thromboplastin Ratio 1.2 Urine Color YELLOW Urine Appearance CLEAR Urine pH >= 9.0 Urine Specific [place] 1.027 Urine Protein 1+ Urine Glucose (UA) NEG Urine Ketones 1+ Urine Occult Blood NEG Urine Nitrite NEG Urine Bilirubin NEG Urine Urobilinogen NEG Urine Leukocyte Esterase SMALL Urine WBC (Auto) 10-30 /hpf Urine RBC (Auto) 10-30 /hpf Urine Hyaline Casts (Auto) 5-10 /lpf Urine Epithelial Cells (Auto) >30 /lpf Urine Bacteria (Auto) 1+ Gastric Fluid pH 2 Gastric Fluid Occult Blood POS Sodium Level 140 mmol/L 142 mmol/L Potassium Level 3.3 mmol/L 3.6 mmol/L Chloride Level 105 mmol/L 112 mmol/L Carbon Dioxide Level 27 mmol/L 25 mmol/L Anion Gap 8.0 mmol/L 5.0 mmol/L Blood Urea Nitrogen 10 mg/dl 8 mg/dl Creatinine 0.61 mg/dl 0.51 mg/dl Est Creatinine Clear Calc Drug Dose 137.1 ml/min 164.0 ml/min Estimated GFR () 149.1 > 150.0 Estimated GFR (Non- 128.7 136.5 BUN/Creatinine Ratio 16.7 15.3 Random Glucose 78 mg/dl 105 mg/dl Calcium Level 9.3 mg/dl 7.8 mg/dl Total Bilirubin 0.3 mg/dl Direct Bilirubin < 0.1 mg/dl Aspartate Amino Transf (AST/SGOT) 17 U/L Alanine Aminotransferase (ALT/SGPT) 23 U/L Alkaline Phosphatase 78 U/L Total Protein 8.4 gm/dl Albumin 4.4 gm/dl Lipase 98 U/L Human Chorionic Gonadotropin, Qual NEG Assessment and Plan Assessment and Plan: Pt is a 22 yo who presented with hemoptysis likely 2/2 annalee holguin tear. Hemoptysis and Abdominal Pain -EGD showed MW tear - begin soft diet, may resume PO intake. -Hepatic vein ultrasound was negative for thrombosis. There may be a hemangioma present on the liver. -Pantoprazole 40 mg BID -Zofran 8 mg or Promethazine 12.5mg for nausea Cough -- Pertussis vs Bronchitis -Pertussis swab, Droplet Precautions -Azithromycin IV -Tussinex prn for cough Anemia -Continue to monitor, has leveled off. -13.4->11.1->10.4->11.2 Home tmw if feeling better overnight.
[2017-08-12] MEDS ORDERED: PROMETHAZINE HCL INJ 12.5 MG in SODIUM CHLORIDE 0.9% 50ML 50 ML IV PRN (15:30)
[2017-08-12] MEDS ORDERED: ONDANSETRON INJ 2 MG/ML 2 ML VIAL IV PRN (15:30)
[2017-08-12] MEDS: ONDANSETRON INJ 8 MG in DEXTROSE 5% 50ML 50 ML IV PRN (15:53)
--- NOTE | 2017-08-12 17:32 | Progress Note ---
Subjective Date of Service: Aug 12, 2017. Subjective pt has persistent significant cough, did have annalee wies tear seen on EGD, still with nausea, previously abd pain has been worked up by outpt G[facility] Problem List Medical Problems: (1) GI bleed Status: Acute Review of Systems Constitutional: No fever, No chills Respiratory: + cough, No sputum, No shortness of breath, No dyspnea on exertion Cardiac: No chest pain, No edema Abdomen: + nausea, No pain, No vomiting, No diarrhea Objective Vital Signs Date Time Temp Pulse Resp B/P (MAP) Pulse Ox O2 Delivery O2 Flow Rate FiO2 08/12/17 16:00 Nasal Cannula 2.0 08/12/17 14:00 36.8 92 16 113/75 (88) 98 2.0 08/12/17 13:00 36.6 119 18 124/77 (93) 96 Nasal Cannula 2.0 08/12/17 12:34 112 22 118/90 (99) 98 Room Air 08/12/17 12:19 155 22 134/75 (94) 97 Room Air 08/12/17 12:04 125 18 117/89 (98) 97 Room Air 08/12/17 12:00 Room Air 08/12/17 11:46 124 20 127/75 (92) 97 Room Air 08/12/17 11:15 84 12 98 Room Air 08/12/17 11:10 37.2 79 20 125/80 (95) 98 Room Air 08/12/17 08:00 Room Air 08/12/17 08:00 Room Air 08/12/17 07:24 36.7 71 16 111/76 (88) 97 08/12/17 06:04 36.7 74 18 108/72 96 Room Air 08/12/17 04:01 36.7 74 18 108/72 (84) 96 Room Air 08/12/17 04:00 Room Air 08/12/17 00:00 Room Air 08/11/17 23:42 36.8 72 20 113/74 (87) 97 Room Air 08/11/17 21:59 36.7 73 18 132/85 Room Air 08/11/17 18:35 79 17 127/76 96 Room Air Physical Exam General Appearance: WD/WN, + mild distress Eyes: PERRL, EOMI ENT: hearing grossly normal, pharynx normal Neck: supple, no adenopathy, no JVD Respiratory/Chest: chest non-tender, lungs clear, normal breath sounds Cardiovascular: regular rate, rhythm, no murmur Abdomen: normal bowel sounds, non tender, soft Extremities: no pedal edema, no calf tenderness Neurologic/Psychiatric: alert, oriented x 3 Laboratory Results Last 24 Hours Test 08/11/17 18:00 08/11/17 23:29 08/12/17 04:02 08/12/17 08:13 White Blood Count 10.75 K/uL Red Blood Count 4.56 M/uL Hemoglobin 13.4 g/dL 11.1 g/dL 10.4 g/dL 11.2 g/dL Hematocrit 40.2 % Mean Corpuscular Volume 88.2 fL Mean Corpuscular Hemoglobin 29.4 pg Mean Corpuscular Hemoglobin Concent 33.3 g/dl Platelet Count 279 K/uL Mean Platelet Volume 8.7 fL Neutrophils (%) (Auto) 85.7 % Lymphocytes (%) (Auto) 10.8 % Monocytes (%) (Auto) 3.0 % Eosinophils (%) (Auto) 0.1 % Basophils (%) (Auto) 0.1 % Neutrophils # (Auto) 9.22 K/uL Lymphocytes # (Auto) 1.16 K/uL Monocytes # (Auto) 0.32 K/uL Eosinophils # (Auto) 0.01 K/uL Basophils # (Auto) 0.01 K/uL RDW Standard Deviation 42.8 fL RDW Coefficient of Variation 13.3 % Immature Granulocyte % (Auto) 0.3 % Immature Granulocyte # (Auto) 0.03 K/uL Prothrombin Time 10.1 SECONDS Prothromb Time International Ratio 0.9 Activated Partial Thromboplast Time 30.1 SECONDS Partial Thromboplastin Ratio 1.2 Urine Color YELLOW Urine Appearance CLEAR Urine pH >= 9.0 Urine Specific [place] 1.027 Urine Protein 1+ Urine Glucose (UA) NEG Urine Ketones 1+ Urine Occult Blood NEG Urine Nitrite NEG Urine Bilirubin NEG Urine Urobilinogen NEG Urine Leukocyte Esterase SMALL Urine WBC (Auto) 10-30 /hpf Urine RBC (Auto) 10-30 /hpf Urine Hyaline Casts (Auto) 5-10 /lpf Urine Epithelial Cells (Auto) >30 /lpf Urine Bacteria (Auto) 1+ Gastric Fluid pH 2 Gastric Fluid Occult Blood POS Sodium Level 140 mmol/L 142 mmol/L Potassium Level 3.3 mmol/L 3.6 mmol/L Chloride Level 105 mmol/L 112 mmol/L Carbon Dioxide Level 27 mmol/L 25 mmol/L Anion Gap 8.0 mmol/L 5.0 mmol/L Blood Urea Nitrogen 10 mg/dl 8 mg/dl Creatinine 0.61 mg/dl 0.51 mg/dl Est Creatinine Clear Calc Drug Dose 137.1 ml/min 164.0 ml/min Estimated GFR () 149.1 > 150.0 Estimated GFR (Non- 128.7 136.5 BUN/Creatinine Ratio 16.7 15.3 Random Glucose 78 mg/dl 105 mg/dl Calcium Level 9.3 mg/dl 7.8 mg/dl Total Bilirubin 0.3 mg/dl Direct Bilirubin < 0.1 mg/dl Aspartate Amino Transf (AST/SGOT) 17 U/L Alanine Aminotransferase (ALT/SGPT) 23 U/L Alkaline Phosphatase 78 U/L Total Protein 8.4 gm/dl Albumin 4.4 gm/dl Lipase 98 U/L Human Chorionic Gonadotropin, Qual NEG Test 08/12/17 17:00 Assessment and Plan 22 y/o F -found to have annalee holguin tear to explain upper GI bleed, has pre hospital cough and bronchitis, Annalee holguin tear continue on a PPi, has had stable hgb and tolerated diet Bronchits will start azithromycin and send pertussis screen persistent nausea, will have increased antiemetic Depression - can resume Lexapro on DC
[2017-08-12] MEDS ORDERED: NURSING VERBAL MED ORDER ONE ×2 (20:30→22:00)
[2017-08-12] MEDS ORDERED: ACETAMINOPHEN 325 MG TAB ONE (21:27)
[2017-08-12] MEDS: PANTOprazole SOD 40 MG TAB PO SCH (21:29)
[2017-08-13] VITALS (10 sets, daily range): BP systolic 101–124; BP diastolic 63–86; PULSE 69–112; TEMP 36.3–37; O2SAT 96–98
[2017-08-13] MEDS: ONDANSETRON INJ 8 MG in DEXTROSE 5% 50ML 50 ML IV PRN ×2 (00:13→18:01)
[2017-08-13] MEDS: ACETAMINOPHEN 325 MG TAB PO PRN ×2 (07:29→16:05)
[2017-08-13] MEDS: PANTOprazole SOD 40 MG TAB PO SCH ×2 (08:13→20:27)
[2017-08-13 08:58] LABS: HEMATOCRIT 35.1 % (37-47); MEAN CELL VOLUME 87.5 fL (80-100); MEAN CORPUSCULAR HEMOGLOBIN 28.4 pg (25-34); MEAN CORPUSCULAR HGB CONC 32.5 g/dl (32-36); MEAN PLATELET VOLUME 8.3 fL (7.4-10.4); PLATELET COUNT 188 K/uL (130-400); RED BLOOD COUNT 4.01 M/uL (4.2-5.4); WHITE BLOOD COUNT 4.52 K/uL (4.8-10.8)
[2017-08-13 09:29] LABS: BUN/CREATININE RATIO 5.3 (10-20); CALCIUM 8.8 mg/dl (8.5-10.1); CREATININE 0.64 mg/dl (0.60-1.20); MAGNESIUM 2.1 mg/dl (1.8-2.4); POTASSIUM 3.3 mmol/L (3.5-5.1)
[2017-08-13] MEDS ORDERED: POTASSIUM CHLORIDE 10 MEQ TABCR PO STA (10:41)
[2017-08-13] MEDS ORDERED: AZITHROMYCIN 250 MG TAB PO ONE (11:15)
[2017-08-13] MEDS ORDERED: GUAIFENESIN 600 MG TABCR PO ONE (11:30)
[2017-08-13] MEDS ORDERED: ALBUT/IPRATROP 3MG/0.5MG NEB 3 ML VIAL INH ONE (11:30)
[2017-08-13] MEDS: METHYLPREDNISOLONE IV 60 MG in SYRINGE 0 ML IV SCH (11:33)
[2017-08-13] MEDS: ALBUT/IPRATROP 3MG/0.5MG NEB 3 ML VIAL INH SCH ×2 (15:25→19:41)
[2017-08-13] MEDS ORDERED: TRAMADOL HCL 50 MG TAB ONE (20:21)
[2017-08-13] MEDS: GUAIFENESIN 600 MG TABCR PO SCH (20:27)
[2017-08-13] MEDS ORDERED: TRAMADOL HCL 50 MG TAB PO PRN (20:30)
--- NOTE | 2017-08-13 20:34 | Progress Note ---
Subjective Date of Service: Aug 13, 2017. Subjective Pt evaluation today including: conversation w/ patient, physical exam, chart review, lab review, review of studies (cxr, recent endoscopy), conversation w/ dairy nutrition consultant, review of inpatient medication list Pain: none PO Intake: poor; "just no appetite" but drinking fluids Voiding: no voiding problems cough is worst symptom dry comes in fits reports "Bronchitis" for several years at least 2-3 episodes/year reports being dx with 'exercise-induced asthma' in high school mother/brother both have asthma she also has seasonal allergies denies any hematemesis denies any BRBPR Problem List Medical Problems: (1) GI bleed Status: Acute Review of Systems Constitutional: No fever Respiratory: + cough, + wheezing, No sputum, No shortness of breath, No dyspnea on exertion Cardiac: No chest pain Abdomen: No pain Objective Vital Signs Date Time Temp Pulse Resp B/P (MAP) Pulse Ox O2 Delivery O2 Flow Rate FiO2 08/13/17 16:03 37.0 91 20 124/80 (95) 96 Room Air 08/13/17 16:00 Room Air 08/13/17 15:25 79 12 97 Room Air 08/13/17 12:00 98 Room Air 08/13/17 11:43 71 12 98 Room Air 08/13/17 08:00 97 Room Air 08/13/17 07:13 36.7 69 16 101/63 (76) 97 Room Air 08/13/17 04:25 Room Air 08/13/17 03:11 36.6 80 20 121/86 (98) 98 Room Air 08/13/17 00:43 Room Air 08/12/17 23:51 82 20 125/80 (95) 96 Room Air 08/12/17 20:10 36.7 74 18 110/76 (87) 96 Room Air 08/12/17 20:04 Room Air Physical Exam General Appearance: no apparent distress ENT: pharynx normal Neck: no JVD Respiratory/Chest: no respiratory distress, no accessory muscle use, + wheezing (extensive; following duonebs x 2 - airation much improved; wheezing much better) Cardiovascular: regular rate, rhythm, no gallop, no murmur Abdomen: normal bowel sounds, non tender, soft, no organomegaly Extremities: no pedal edema Neurologic/Psychiatric: alert, oriented x 3 Laboratory Results Last 24 Hours Test 08/13/17 08:45 White Blood Count 4.52 K/uL Red Blood Count 4.01 M/uL Hemoglobin 11.4 g/dL Hematocrit 35.1 % Mean Corpuscular Volume 87.5 fL Mean Corpuscular Hemoglobin 28.4 pg Mean Corpuscular Hemoglobin Concent 32.5 g/dl RDW Standard Deviation 41.7 fL RDW Coefficient of Variation 13.0 % Platelet Count 188 K/uL Mean Platelet Volume 8.3 fL Sodium Level 138 mmol/L Potassium Level 3.3 mmol/L Chloride Level 105 mmol/L Carbon Dioxide Level 26 mmol/L Anion Gap 7.0 mmol/L Blood Urea Nitrogen 3 mg/dl Creatinine 0.64 mg/dl Est Creatinine Clear Calc Drug Dose 130.3 ml/min Estimated GFR () 146.8 Estimated GFR (Non- 126.7 BUN/Creatinine Ratio 5.3 Random Glucose 82 mg/dl Calcium Level 8.8 mg/dl Magnesium Level 2.1 mg/dl Assessment and Plan 22yo female: 1. hematemesis 2nd to annalee-aleja tear - s/p EGD. Now on PPI twice daily. H/H stable. 2. suspected underlying asthma with exacerbation - spoke with Issa MAKI - ok to use systemic steroids. Start solumedrol 60mg q12h. mucinex. duonebs q6h. recommend outpatient pulmonary referral. needs controller agent at discharge. 3. nausea/emesis - 2nd to #2? resolved. cont PPI. 4. mild acute blood loss anemia - stable H/H. 5. hypokalemia - replace, repeat level am. 6. severe cough - due to #2. pertussis possible but typically does not cause extensive wheezing [id number] her pertussis swab has been sent and is pending anticipate d/c tomorrow AM probable d/c tomorrow Continued [facility] stay due to: multiple IV medications needed Discharge planning: home
[2017-08-13] MEDS: GUAIFENESIN/CODEINE 200MG/20MG 10ML UDC PO PRN (21:59)
[2017-08-14] MEDS: METHYLPREDNISOLONE IV 60 MG in SYRINGE 0 ML IV SCH (00:04)
[2017-08-14] MEDS: ACETAMINOPHEN 325 MG TAB PO PRN (00:05)
[2017-08-14 04:00] VITALS: BP 117/69; PULSE 87; TEMP 36.3; O2SAT 96
[2017-08-14 07:15] VITALS: O2SAT 98
[2017-08-14 07:21] VITALS: BP 137/89; PULSE 74; TEMP 36.7; O2SAT 90
[2017-08-14 07:25] VITALS: BP 137/89; TEMP 36.7; O2SAT 90
[2017-08-14 07:27] VITALS: PULSE 107; O2SAT 97
[2017-08-14] MEDS: ALBUT/IPRATROP 3MG/0.5MG NEB 3 ML VIAL INH SCH (07:27)
[2017-08-14] MEDS ORDERED: GFNSR600 PO (07:55)
[2017-08-14] MEDS ORDERED: FLUT1AER5 INH (07:55)
[2017-08-14] MEDS ORDERED: PRVHFAIN PO (07:55)
[2017-08-14] MEDS ORDERED: PANT40TA PO (07:55)
[2017-08-14] MEDS ORDERED: PRD20 PO (07:55)
[2017-08-14] MEDS ORDERED: AZIT250T PO (07:55)
[2017-08-14] MEDS ORDERED: AZITHROMYCIN 250 MG TAB PO ONE (08:00)
--- NOTE | 2017-08-14 08:08 | Discharge Instructions ---
Discharge Instructions Date of Service Aug 14, 2017. Admission Reason for Admission: Severe cough, Vomiting Discharge Discharge Diagnosis / Problem: 1. asthma "exacerbation"; 2. vomiting blood - due to tear in esophagus Discharge Goals Goal(s): Learn about illness, Diagnostic testing, Therapeutic intervention Activity Recommendations Activity Limitations: as noted below For the next 5-7 days please avoid heavy exertional activity such as going to the gym, going for a run or bike ride, lifting weights, intramurals, etc. These activities will likely worsen your breathing and asthma symptoms. Light walks and other light activities are ok. As your respiratory symptoms fully resolve you can resume normal activity. . Instructions / Follow-Up Instructions / Follow-Up From Dr. Panda: 1. Vomiting with some blood seen in the vomit - * this was due to a small tear in the lining of the esophagus where it meets the stomach * it was already starting to heal at the time of the endoscopy * the tear occurred due to all of the vomiting itself (retching) * please take protonix (pantoprazole) 40mg twice a day for 14 days - prescription sent to [facility] * diet - please avoid excessive amounts of the following for about 5-7 days: * caffeinated beverages including coffee, tea, soda * spicy foods * fried foods/fast foods * orange juice * chocolate 2. Severe cough for 2 weeks - * I suspect you have underlying uncontrolled asthma * You responded very quickly to albuterol nebs and IV steroids * Please do the following: * take prednisone 60mg once daily for 5 days starting TODAY; prescription sent to [facility]; take with food * use your albuterol inhaler 2 puffs every 6 hours scheduled/regularly for about 3-4 days, then can use as needed thereafter * START flovent diskus 1 puff twice daily every day; this is your "controller agent" to help prevent future episodes of asthma exacerbations/"bronchitis" * rinse your mouth with water after using flovent * avoid "triggers" that contribute to asthma symptoms including exposure to cold temps, smoking, respiratory viruses, etc * we will refer you to a clinical admissions manager in [place] for additional testing/ treatment 3. Question of pertussis - * a pertussis test was sent as a precautionary measure but it is likely that you do not have this infection * as a precaution you were given zithromax in the rare event you have pertussis * take 2 more days of zithromax starting TOMORROW; prescription sent to [facility] for you 4. Please know that antibiotics interfere with the effectiveness of control pills. If you are sexually active you will need to use a second form of control until your next menstrual cycle. 5. If you need additional cough relief recommend [id number] mucinex up to 1200mg twice daily as needed for cough/congestion. 6. Return to [facility] if - * you develop fever over 100.4 degrees * you develop worsening cough, shortness of breath, chest pain/tightness, etc that is not responding to your albuterol and other medications * you develop recurrent vomiting especially if associated with blood * any other concerns 7. Follow-up - * please see [facility] on Tuesday of this week * we will set you up with a lung specialist (clinical admissions manager) in [place] for additional testing - date/time to be determined 8. Small "spot" seen on liver ultrasound - * this is likely a benign hemangioma * if so it does not require any treatment * some physicians recommend a dedicated MRI of the liver just to be complete and confirm that it is indeed a hemangioma * you can discuss getting an MRI sometime in the future with [facility] Current Hospital Diet Patient's current hospital diet: Regular Diet Discharge Diet Recommended Diet: Regular Diet Procedures Procedures Performed: 1. Upper endoscopy ("EGD") showing a small tear at the junction of your esophagus and stomach. This occurred due to vomiting. 2. liver ultrasound showing a 1.3cm spot. This is likely a benign hemangioma. 3. chest x-ray - no evidence of pneumonia. Pending Studies Studies pending at discharge: yes List of pending studies: pertussis testing Work Instructions Return To Work: 2 days Medical Emergencies . Who to Call and When: Medical Emergencies: If at any time you feel your situation is an emergency, please call 911 immediately. . Non-Emergent Contact Non-Emergency issues call your: Primary Care Provider Call Non-Emergent contact if: temperature is above 100.5, you have any medication questions . . "Provider Documentation" section prepared by Remington Panda. . VTE Core Measure Inpt VTE Proph given/why not?: SCD's
[2017-08-14] MEDS: PANTOprazole SOD 40 MG TAB PO SCH (08:24)
[2017-08-14] MEDS: GUAIFENESIN 600 MG TABCR PO SCH (08:24)
--- NOTE | 2017-08-14 23:50 | Discharge Summary ---
Discharge Summary Date of Service Aug 14, 2017. Discharge Summary Admission Date: Aug 11, 2017 at 19:33 Discharge Date: Aug 14, 2017 Discharge Disposition: Home Principal Diagnosis: hematemesis 2nd to Lacy-Gómez Tear Problems/Secondary Diagnoses: 1. mild acute blood loss anemia 2. nausea/emesis - resolved 3. suspected underlying asthma with acute exacerbation 4. severe cough, likely 2nd to #3 - improving; pertussis testing pending as precautionary measure 5. depression 6. hypokalemia - resolved 7. liver lesion - likely hemangioma; consideration to outpatient MRI could be entertained Procedures: 1. EGD, Dr. Delbert Parra - [facility] GI Findings: The GE junction was at 40 cm. There was a MW tear at the GE junction with a flat pigmented spot. The tear appeared to be shallow and healing. There was erythema in the fundus and cardia, likely related to retching. The remainder of the stomach was normal. There was mild patchy erythema in the bulb; the duodenum was otherwise normal. 2. liver / portal vein doppler study: IMPRESSION: 1. No evidence for portal or hepatic vein thrombosis. 2. A 1.3 cm hyperechoic lesion within the liver. This is technically indeterminate by ultrasound but has the typical appearance for a hemangioma. 3. abdominal/chest x-rays - negative. Consultations: gastroenterology - Delbert Parra MD Medication Reconciliation New Medications: Albuterol (Ventolin Hfa) 60 Puffs/5400 Mcg Aers 2 PUFFS PO Q4H PRN for cough/wheeze/sob, #1 INHALER 1 Refill Azithromycin (Zithromax) 250 Mg Tab 250 MG PO DAILY for 2 Days, #2 TAB Fluticasone Propionate (Inhala (Flovent Diskus) 100 Mcg/Blist Aer 1 PUFFS INH BID, #1 INHALER 5 Refills rinse mouth with water and spit after each use. Pantoprazole (Protonix) 40 Mg Tab 40 MG PO BID for 14 Days, #28 TAB 0 Refills Prednisone (Prednisone) 20 Mg Tab 3 TABS PO DAILY for 5 Days, #15 TABS 0 Refills Guaifenesin Ext Rel (Mucinex Ext Rel) 600 Mg Tabcr 1200 MG PO Q12 PRN for cough/congestion, #30 TABS 0 Refills can purchase [id number] Continued Medications: Control Pills ( Control Pills) Tab 1 TAB PO DAILY, TAB Escitalopram Oxalate (Lexapro) 20 Mg Tab 20 MG PO DAILY, TAB Hydroxyzine Hcl (Atarax) 50 Mg Tab 50 MG PO QID PRN for Anxiety, TAB Phenylephrine-Chlorpheniramine (Karla-Decker Plus Severe) 1 Tab Tab 1 TAB PO BID Discontinued Medications: Dextromethorphan-Guaifenesin (Delsym Cough + Chest Lazaro 5-100 mg/5Ml) 1 Liq Liq 20 ML PO DAILY Referrals At Discharge Follow up Referrals: Physician Referral - Please Call For Appointment with [facility] Discharge Exam Physical Exam: General Appearance: WD/WN, no apparent distress ENT: pharynx normal Neck: no JVD Respiratory/Chest: no respiratory distress, no accessory muscle use, + wheezing (scant end-exp wheeze; normal airation/air movement) Cardiovascular: regular rate, rhythm, no gallop, no murmur, normal peripheral pulses Abdomen / GI: normal bowel sounds, non tender, soft, no organomegaly Extremities: no pedal edema Neurologic/Psychiatric: alert, oriented x 3 Skin: no rash Hospital Course HISTORY OF PRESENT ILLNESS: 22yo female, 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 Despite such she had been eating normally. She also had had cough for about 2 weeks along with wheezing. On the day of admission she developed acute nausea and vomiting. She had 2 episodes of clear emesis followed by 2 episodes of vomiting bright red blood. She denied SOB, CP, fevers or worsening pain. The patient's vital signs were stable at the time of admission and her initial hemoglobin was normal. HOSPITAL COURSE: The patient's hematemesis was found to be due to a Lacy-Gómez tear as seen on EGD by Dr. Parra. Lowest hemoglobin was recorded at 10.4, but subsequent readings were 11 or higher. She did not require a blood transfusion. She was initiated on proton pump inhibitor and for the remainder of her stay she had no nausea or vomiting. Appetite gradually improved with PPI. She was advised to take protonix 40mg twice a day for 14 days following discharge at which point the PPI can be discontinued. The exact cause of the vomiting was uncertain but perhaps related to a viral illness or was due to post-tussive emesis. In addition, the patient had significant wheezing and cough during the hospitalization. She reported a long-standing history of recurrent "bronchitis" dating back several years. She was told in the past that she also had exercise-induced asthma and seasonal allergies. Furthermore she reported a strong family history of asthma in her mother and brother. In light of the above it was felt that she may have undiagnosed, underlying asthma and that her current illness was due to an asthma exacerbation. She was treated with albuterol nebs and steroids; with such she made rapid improvement in all symptoms. As a precautionary measure a pertussis test was obtained and sent, and she was empirically treated with azithromycin. Prior to discharge her lung exam was markedly improved. She will complete a course of prednisone after discharge, continue to use albuterol prn, and will complete the azithromycin course for the possibility of pertussis (felt to be unlikely, however). The patient reported using albuterol on a weekly basis at home and having at least 2-3 "bronchitis" flares/year. Thus, she was also begun on flovent diskus as a controller agent. She was advised to follow-up with [facility] for PFTs and other testing. Follow-up with [facility] was also recommended prior to returning full-time to classes. Total Time Spent: Greater than 30 minutes This includes examination of the patient, discharge planning, medication reconciliation, and communication with other providers. Discharge Instructions Please refer to the electronic Patient Visit Report (Discharge Instructions) for additional information. Follow-Up 1. see [facility] [address] [facility] within 2 days 2. [facility] referral - date/time to be determined Additional Copies To Delbert Parra M.D.; [facility]
== END 2017-08-14 09:18 | disposition home or self-care (01) | DRG 369 ==
LOC: C.EDB 16:55 → C.MED 19:33 → ENRESERV 19:45
PROVIDERS: ADMIT Internal Medicine; ATTEND Internal Medicine
PROC: 0DJ08ZZ Inspection of Upper Intestinal Tract, Via Natural or Artificial Opening Endoscopic (ICD-10-PCS; principal; 2017-08-12 10:53)
DX: K22.6 Gastro-esophageal laceration-hemorrhage syndrome (principal); D62 Acute posthemorrhagic anemia; J45.901 Unspecified asthma with (acute) exacerbation; F32.9 Major depressive disorder, single episode, unspecified; E87.6 Hypokalemia; D18.03 Hemangioma of intra-abdominal structures; J40 Bronchitis, not specified as acute or chronic